=== PATIENT | female | born 1995 | race Caucasian/White ===

== ENCOUNTER 2022-04-07 12:44 | Emergency (ER) | payer OTHER ==
[~2022-04-07] VITALS: Ht 162.6 cm; Wt 149.7 kg
[2022-04-07 12:57] VITALS: BP 109/85
--- NOTE | 2022-04-07 13:10 | NUR ---
26 Y/O FEMALE BIB SELF FOR SQUEEZING CHEST PAIN SINCE 03/29. PT IS AOX4, ABLE TO MAKE NEEDS KNOWN. RESP EVEN AND UNLABORED. SKIN WARM AND DRY. PMHX: ANXIETY ALLERGIES: DENIES HOME MEDS: DENIES
--- NOTE | 2022-04-07 13:14 | NUR ---
EKG DONE IN TRIAGE[facility] AMBUL[facility] WITH A STEADY GAIT TO [facility].
--- NOTE | 2022-04-07 13:35 | NUR ---
PRINCIPAL LIBRARIAN WITH PT IN B FOR LAB DRAWS.
[2022-04-07] MEDS ORDERED: ATA25 PO (15:28)
[2022-04-07 15:42] VITALS: BP 114/74
--- NOTE | 2022-04-07 15:42 | NUR ---
Patient discharged with v/s stable. Written and verbal after care instructions given FOR PANICK ATTACK and explained. Patient alert, oriented and verbalized understanding of instructions. Ambulatory with steady gait. All questions addressed prior to discharge. ID band removed. Patient advised to follow up with PMD. Rx of ATARAX given. Patient educated on indication of medication including possible reaction and side effects. Opportunity to ask questions provided and answered.
== END 2022-04-07 15:42 | disposition home or self-care (01) ==
LOC: MED 12:44
DX: F41.9 Anxiety disorder, unspecified (principal); R07.89 Other chest pain; Z79.899 Other long term (current) drug therapy
CPT/HCPCS: 36415; 71045; 84484; 93005; 99285